=== PATIENT | male | born 1965 | race African-American/Black ===

== ENCOUNTER 2018-04-19 20:12 | Emergency (ER) | payer MEDICAID ==
[~2018-04-19] VITALS: Ht 195.6 cm; Wt 87.7 kg
[2018-04-19] MEDS ORDERED: MORPHINE SULFATE 4 MG/ML CPJ (NOT FOR IM USE) IV STA (22:54)
[2018-04-19] MEDS ORDERED: SODIUM CHLORIDE 0.9% 1,000 ML IV ONE (22:54)
[2018-04-19] MEDS ORDERED: FAMOTIDINE 20MG/2ML VIAL IV STA (22:54)
[2018-04-19] MEDS ORDERED: ONDANSETRON HCL 4MG/2ML INJ IV STA (22:54)
[2018-04-20 00:06] LABS: BASOPHILS % 0.3 % (0.0-2.0); EOSINOPHILS % 0.5 % (0.0-5.0); HEMATOCRIT. 43.9 % (42.0-52.0); HEMOGLOBIN. 13.8 g/dL (14.0-18.0); LYMPHOCYTES % 24.6 % (20.0-50.0); MEAN CORPUSCULAR VOLUME 70.1 fL (80.0-94.0); MEAN PLATELET VOLUME 8.7 fl (7.4-10.4); MONOCYTES % 12.6 % (2.0-8.0); PLATELET 201 x1000/uL (130-400); RED BLOOD CELL COUNT 6.26 mill/uL (4.7-6.1); RED CELL DISTRIBUTION WIDTH 15.8 % (11.6-14.6)
[2018-04-20 00:13] LABS: CHLORIDE 98 mEq/L (98-107); PROTHROMBIN TIME 10.4 sec (9.1-11.1)
[2018-04-20 00:17] LABS: CLARITY URINE CLEAR (CLEAR); COLOR URINE YELLOW (YELLOW); KETONES URINE NEGATIVE (NEGATIVE); LEUKOCYTE ESTERASE URINE NEGATIVE (NEGATIVE); NITRITE URINE NEGATIVE (NEGATIVE); OCCULT BLOOD URINE NEGATIVE (NEGATIVE); PH URINE 5.5 (4.5-8.0); PROTEIN URINE NEGATIVE (NEGATIVE); SPECIFIC GRAVITY URINE 1.015 (1.005-1.030)
[2018-04-20] MEDS ORDERED: MORPHINE SULFATE 10 MG/ML CPJ IV NR (00:30)
[2018-04-20] MEDS: MORPHINE SULFATE 10 MG/ML CPJ IV NR ×2 (00:43→02:01)
[2018-04-20 02:19] VITALS: BP 106/67
== END 2018-04-20 02:46 | disposition home or self-care (01) ==
LOC: ER 20:12
DX: N28.9 Disorder of kidney and ureter, unspecified (principal); K29.70 Gastritis, unspecified, without bleeding; R53.1 Weakness; E78.00 Pure hypercholesterolemia, unspecified; I10 Essential (primary) hypertension
CPT/HCPCS: 36415; 71045; 76705; 80053; 81003; 83605; 83690; 84484; 85025; 85610; 93005; 96361; 96374; 96375; 96376; 99284; J2270; J2405; J3490; J7030